=== PATIENT | female | born 1985 | race Caucasian/White ===

== ENCOUNTER → 2019-11-01 | Outpatient (CLI) | payer OTHER, MEDICARE ==
[2016-11-27 16:27] VITALS: BP 98/63
[~2019-11-01] MED LIST: ALBU2.5V8 IH; DICY10CA3 PO; FLUT9.9S NS; GABA600T7 PO; OMEP40CA2 PO; OXYC5TAB88 PO; POLY17PO29 PO; PROM25SU32 RC; PROM25TA10 PO
--- NOTE | 2019-11-01 12:51 | RAD ---
EXAM: Cervical spine, 2 views; lumbar spine, 2 views. HISTORY: Pain. Disability determination. COMPARISON: None. FINDINGS: Lumbar spine: 2 views of the lumbar spine are obtained. There is 6 nonrib-bearing vertebral segments, a normal variant. There is mild lumbar levocurvature. There is no significant listhesis. The vertebral bodies are normal in height and the disc spaces are preserved. Cervical spine: 2 views of the cervical spine are obtained. There is no listhesis. The vertebral bodies are normal in height and spaces are preserved. IMPRESSION: No acute osseous finding. Electronically signed by: Lien Simmons MD (11/01/2019 12:48 PM) [facility]
== END | disposition home or self-care (01) ==
LOC: RAD 09:29
PROVIDERS: ATTEND Surgery
DX: M43.8X6 Other specified deforming dorsopathies, lumbar region (principal); M54.2 Cervicalgia
CPT/HCPCS: 72040; 72100